=== PATIENT | female | born 1965 | race Caucasian/White ===

== ENCOUNTER → 2016-12-07 | Outpatient (CLI) | payer OTHER ==
--- NOTE | 2016-12-07 11:09 | XR ---
EXAMINATION TYPE: 3 views coned down left thumb. 3 views coned-down right thumb. DATE OF EXAM: 12/07/2016 COMPARISON: Left wrist 09/03/2016 HISTORY: 51-year-old female thumb joint pain FINDINGS: Left: Mild to moderate degenerative change with joint space narrowing and marginal spurring at the first CM C joint. Minimal marginal spurring at the IP joint. No acute fracture or dislocation. Right: Mild degenerative change at the first CMC joint and minimal at the IP joint with some marginal spurri ng. No acute fracture, subluxation, or dislocation. IMPRESSION: Left greater than right osteoarthritic changes at the basal joints of the thumb. No acute osseous abn ormality seen.
== END | disposition home or self-care (01) ==
LOC: RADXRMAIN 10:16
PROVIDERS: ATTEND Family Medicine
DX: M18.0 Bilateral primary osteoarthritis of first carpometacarpal joints (principal)

== ENCOUNTER → 2016-12-20 | Outpatient (CLI) | payer OTHER ==
--- NOTE | 2016-12-20 10:46 | CT ---
EXAMINATION TYPE: CT lumbar spine wo con DATE OF EXAM: 12/20/2016 COMPARISON: CT lumbar spine March 04, 2014 HISTORY: Radiculopathy lumbar region. Numbness in bilateral legs with difficulty ambulating after tri pping injury last week. CT DLP: 2223 mGycm Automated exposure control for dose reduction was used. FINDINGS: There is redemonstration of 5 lumbar type vertebra. There is redemonstration of sclerotic L1 vertebra suspected diffuse hemangioma transformation unchanged in appearance from prior study. Lumbar spine s hows satisfactory alignment without evidence of acute fracture or dislocation. Mild disc space narrow ing L4-L5 and L5-S1 levels is redemonstrated. No large posterior disc herniations are seen on sagitta l images. Minimal anterior spurring upper lumbar spine is redemonstrated. Review of axial images shows T12-L1 and L1-L2 levels to remain within normal limits. Axial images at L2-L3 level redemonstrate mild broad disc bulge without spinal canal stenosis or neur al foraminal narrowing. Axial images at L3-L4 level shows mild broad disc bulge and mild facet degenerative changes bilateral ly. There is mild effacement of anterior thecal sac. Bilateral neural foramina remain patent. No sign ificant change from prior study is seen. Axial images at L4-L5 level show mild to moderate facet degenerative changes bilaterally. There is br oad disc bulge with left foraminal disc protrusion component redemonstrated. There is effacement of t he anterior thecal sac. There is asymmetric moderate left-sided anterior inferior neural foraminal na rrowing redemonstrated. Right-sided neural foramen is patent. Axial images at L5-S1 level redemonstrate mild to moderate facet degenerative changes bilaterally. Sp inal canal is preserved. There is mild bilateral neural foraminal narrowing due to marginal spurring redemonstrated. Cholecystectomy clips are noted. There is mild calcified plaque of aorta extending into branch vessel s. Occasional diverticula in the sigmoid colon are identified. IMPRESSION: MULTILEVEL DEGENERATIVE CHANGES IN THE MID TO LOWER LUMBAR SPINE DETAILED ABOVE MOST PROMINENT AT L4-L5 LEVEL. NO SIGNIFICANT CHANGE FROM PRIOR CT.
== END | disposition home or self-care (01) ==
LOC: RADCTMAIN 08:30
PROVIDERS: ATTEND Family Medicine
DX: M47.27 Other spondylosis with radiculopathy, lumbosacral region (principal)
CPT/HCPCS: 72131

== ENCOUNTER 2017-03-08 12:03 | Day surgery (SDC) | payer OTHER ==
[2017-03-08 12:29] LABS: Glucose,Whole Blood 94 mg/dL (75-99)
[2017-03-08 12:46] VITALS: TEMP 98.2
[2017-03-08] MEDS: LACTATED RINGERS 1,000 ML IV ONE ×2 (12:46→12:47)
[2017-03-08] MEDS ORDERED: LACTATED RINGERS 1,000 ML IV SCH (12:46)
[2017-03-08] MEDS ORDERED: LIDOCAINE 1% 20 ML VIAL (10MG/ML) FOR IV START INTRADERMA ONE (12:47)
[2017-03-08] MEDS ORDERED: PROPOFOL 10 MG/ML 20 ML VIAL IV ONE (13:15)
[2017-03-08 13:51] VITALS: BP 160/83; PULSE 80; RESP 18
--- NOTE | 2017-03-08 13:52 | P.PCN ---
Date of Procedure: 03/08/17 Procedure(s) Performed: Procedure: Esophagogastroduodenoscopy and biopsy. Preoperative diagnosis: Abdominal pain, nausea and vomiting. Postoperative diagnosis: 1. Small sliding hiatal hernia. 2. Mild antral gastritis. 3. Biopsies obtained from the duodenum, antrum and esophagus. Preparation and sedation: Was provided by anesthesia. Procedure: With the patient on her left lateral decubitus position and after informed consent and adequate sedation, I passed the Olympus-GIF 160 video upper endoscope through the cricopharyngeus down the esophagus. GE junction was around 36 cm from the incisors. There was a small sliding hiatal hernia with no esophagitis, strictures or Hernandez's esophagus. The endoscope was then passed into the stomach which was insufflated with air and inspected in detail including the retroflex view in the cardia. There was mottling and erythema in the antrum but no ulcers or erosions. Pyloric channel, duodenal bulb, post bulbar area and descending duodenum appeared within normal limits. I obtained biopsies from the duodenum, antrum and esophagus then the endoscope was withdrawn. The patient tolerated the procedure well. Plan: The patient was reassured. Will await biopsy results. Further plans based on her course and biopsy results.
== END 2017-03-08 14:08 | disposition home or self-care (01) ==
LOC: ORWHC2ENDO 12:03
DX: K29.50 Unspecified chronic gastritis without bleeding (principal); K44.9 Diaphragmatic hernia without obstruction or gangrene; K21.0 Gastro-esophageal reflux disease with esophagitis; I10 Essential (primary) hypertension; E78.5 Hyperlipidemia, unspecified; E07.9 Disorder of thyroid, unspecified; L40.50 Arthropathic psoriasis, unspecified; Z79.899 Other long term (current) drug therapy; Z90.710 Acquired absence of both cervix and uterus; Z88.8 Allergy status to other drugs, medicaments and biological substances
CPT/HCPCS: 43239; 88305; 88342; J2704

== ENCOUNTER 2017-08-22 20:07 | Emergency (ER) | payer OTHER ==
[2017-08-22 20:58] LABS: HCT 38.8 % (34.0-46.0); HGB 13.2 gm/dL (11.4-16.0); MCH 30.3 pg (25.0-35.0); MCV 89.2 fL (80.0-100.0); Mean Platelet Volume 7.3; Platelet Count 215 k/uL (150-450); RBC 4.35 m/uL (3.80-5.40); RDW 12.9 % (11.5-15.5); WBC 4.5 k/uL (3.8-10.6)
[2017-08-22 21:02] LABS: ALT 36 U/L (9-52); AST 28 U/L (14-36); Albumin 3.9 g/dL (3.5-5.0); Alkaline Phosphatase 105 U/L (38-126); Anion Gap 13 mmol/L; Blood Urea Nitrogen 14 mg/dL (7-17); Carbon Dioxide 25 mmol/L (22-30); Chloride 105 mmol/L (98-107); Glucose 93 mg/dL (74-99); Magnesium 1.9 mg/dL (1.6-2.3); Potassium 4.2 mmol/L (3.5-5.1); Sodium 143 mmol/L (137-145); Total Bilirubin 0.2 mg/dL (0.2-1.3); Total Protein 6.6 g/dL (6.3-8.2)
[2017-08-22 21:06] LABS: Creatine Kinase 68 U/L (30-135); INR 0.9 (<1.2); Partial Thromboplastin Time 23.6 sec (22.0-30.0); Prothrombin Time 9.4 sec (9.0-12.0)
[2017-08-22 21:20] LABS: Creatine Kinase MB <0.2 ng/mL (0.0-2.4); Troponin I <0.012 ng/mL (0.000-0.034)
[2017-08-22 21:29] LABS: Band Neutrophils % 1 %; Lymphocytes # (M) 2.07 k/uL (1.0-4.8); Monocytes # (M) 0.54 k/uL (0-1.0); Neutrophils % (M) 41 %; Nucleated Red Blood Cells 0 /100 WBC (0-0); Total Cells Counted 100
[2017-08-22] MEDS ORDERED: ALBUTEROL NEBULIZED 2.5 MG/3 ML INHALATION STA (22:13)
--- NOTE | 2017-08-22 22:13 | ED ---
Chest Pain HPI - General Chief Complaint: Chest Pain Stated Complaint: Chest pain Time Seen by Provider: 08/22/17 21:35 Source: patient Mode of arrival: ambulatory Limitations: no limitations - History of Present Illness Initial Comments: This patient is a 51-year-old woman who presents to be evaluated mainly for left -sided chest pains, but she also has been complaining of chest congestion and a cough. She states that her symptoms started nearly 2 weeks ago with the upper respiratory symptoms which progressed to chest congestion and a cough. She has had some mild shortness of breath intermittently. Patient states that tonight around 7 PM she started experiencing intermittent pains from the left chest radiating towards the substernal area. She describes it as a "zinging" and states that the pain lasts only a second, however she has had it a number of times rapidly and succession. It was not going on when I was doing history and physical exam. She did not have any associated anginal symptoms, no diaphoresis , nausea or vomiting. MD Complaint: chest pain Onset/Timin -: hour(s) Onset: during rest Pain Location: left chest Severity: moderate Quality: other (She first of the pain as a zinging sensation) Consistency: intermittent Improves With: nothing Worsens With: nothing Other Symptoms: cough Treatments Prior to Arrival: none - Related Data Home Medications Medication Instructions Recorded Confirmed Gabapentin [Neurontin] 600 mg PO TID 04/18/14 08/22/17 HYDROcodone/APAP 7.5-325MG [[place] 1 tab PO TID PRN 04/18/14 08/22/17 7.5-325] Metoprolol Tartrate [Metoprolol 50 mg PO BID 04/18/14 08/22/17 Tartrate] Sertraline HCl [Sertraline HCl] 100 mg PO HS 04/18/14 08/22/17 Etanercept [Enbrel] 1 dose INJ MO 03/08/17 08/22/17 Ezetimibe [Zetia] 10 mg PO DAILY 03/08/17 08/22/17 Levothyroxine Sodium [Synthroid] 25 mcg PO DAILY 03/08/17 08/22/17 tiZANidine HCL [Zanaflex] 4 mg PO BID 03/08/17 08/22/17 Cholecalciferol [Vitamin D3] 4,000 unit PO DAILY 08/22/17 08/22/17 Esomeprazole Magnesium [NexIUM] 40 mg PO DAILY 08/22/17 08/22/17 Losartan Potassium 100 mg PO DAILY 08/22/17 08/22/17 Simvastatin 40 mg PO HS 08/22/17 08/22/17 predniSONE 5 mg PO DAILY 08/22/17 08/22/17 sulfaSALAzine [Azulfidine] 1,000 mg PO BID 08/22/17 08/22/17 Previous Rx's Medication Instructions Recorded Albuterol Inhaler [Ventolin Hfa 1 - 2 puff INHALATION Q6HR PRN #1 08/23/17 Inhaler] inhaler Azithromycin [Zithromax Z-pack] 250 mg PO DIRECTED #6 tab 08/23/17 predniSONE 20 mg PO BID #8 tab 08/23/17 Allergies Allergy/AdvReac Type Severity Reaction Status Date / Time lisinopril AdvReac Cough Verified 08/22/17 21:56 Review of Systems ROS Statement: Those systems with pertinent positive or pertinent negative responses have been documented in the HPI. ROS Other: All systems not noted in ROS Statement are negative. Constitutional: Denies: fever, chills Respiratory: Reports: as per HPI, cough, dyspnea, wheezes. Denies: hemoptysis Cardiovascular: Reports: as per HPI, chest pain. Denies: palpitations, edema, syncope Gastrointestinal: Denies: abdominal pain, vomiting, diarrhea Genitourinary: Denies: dysuria, hematuria Musculoskeletal: Denies: back pain Skin: Denies: rash Neurological: Denies: headache, weakness, numbness EKG Findings - EKG Results: EKG: interpreted by ERMD, WNL, sinus rhythm (Rate 71 bpm), normal axis, normal QRS, normal ST/T, no acute changes Past Medical History Past Medical History: Fibromyalgia, GERD/Reflux, Hypertension, Thyroid Disorder Additional Past Medical History / Comment(s): PATENT FORAMEN OVALE, SPINAL STENOSIS, LOW BACK PAIN RADIATES DOWN RODRICK LEGS. psoriatic arthritis History of Any Multi-Drug Resistant Organisms: None Reported Past Surgical History: Appendectomy, Cholecystectomy, Hysterectomy, Orthopedic Surgery, Tonsillectomy, Tubal Ligation Additional Past Surgical History / Comment(s): LEFT HAND , RODRICK SHOULDERS. Past Anesthesia/Blood Transfusion Reactions: Family History of Problems w/ Anesthesia, Postoperative Nausea & Vomiting (PONV) Additional Past Anesthesia/Blood Transfusion Reaction / Comment(s): MOTHER-PONV Past Psychological History: No Psychological Hx Reported Smoking Status: Former smoker Past Alcohol Use History: None Reported Past Drug Use History: None Reported - Past Family History Mother Family Medical History: Cancer Father Family Medical History: Deep Vein Thrombosis (DVT) General Exam Limitations: no limitations General appearance: alert, in no apparent distress, obese Head exam: Present: atraumatic, normocephalic Eye exam: Present: normal appearance. Absent: scleral icterus, conjunctival injection Respiratory exam: Present: normal lung sounds bilaterally, wheezes. Absent: respiratory distress, rales, rhonchi, stridor, chest wall tenderness, accessory muscle use, decreased breath sounds, prolonged expiratory Cardiovascular Exam: Present: regular rate, normal rhythm, systolic murmur. Absent: diastolic murmur, rubs, gallop GI/Abdominal exam: Present: soft. Absent: distended, tenderness, guarding, rebound, mass Extremities exam: Present: normal inspection, normal capillary refill. Absent: pedal edema, calf tenderness Back exam: Absent: CVA tenderness (R), CVA tenderness (L) Skin exam: Present: warm, dry, intact, normal color. Absent: rash Course Vital Signs 08/22/17 08/22/17 08/22/17 20:15 22:24 22:31 Temperature 97.0 F L 97.7 F Pulse Rate 85 74 69 Respiratory 18 18 16 Rate Blood Pressure 148/86 156/83 O2 Sat by Pulse 100 96 Oximetry 08/22/17 22:40 Temperature Pulse Rate 70 Respiratory 16 Rate Blood Pressure O2 Sat by Pulse Oximetry Disposition Clinical Impression: Chest pain, Bronchitis Disposition: HOME SELF-CARE Condition: Good Instructions: Chest Pain (ED), Acute Bronchitis (ED) Prescriptions: Albuterol Inhaler [Ventolin Hfa Inhaler] 1 - 2 puff INHALATION Q6HR PRN #1 inhaler PRN Reason: Wheezing Azithromycin [Zithromax Z-pack] 250 mg PO DIRECTED #6 tab predniSONE 20 mg PO BID #8 tab Referrals: Siddhartha Eli DO [Primary Care Provider] - 1-2 days
--- NOTE | 2017-08-22 22:19 | XR ---
EXAMINATION TYPE: XR chest 2V DATE OF EXAM: 08/22/2017 COMPARISON: NONE HISTORY: Cough and chest pain TECHNIQUE: Frontal and lateral views of the chest are obtained. FINDINGS: Heart and mediastinum are normal. Lungs are clear. Diaphragm is normal. Bony thorax is int act. Pulmonary vascularity is normal. IMPRESSION: Normal chest
[2017-08-22 22:34] VITALS: RESP 16
[2017-08-23 00:33] VITALS: BP 160/85; PULSE 82; TEMP 99.3
== END 2017-08-23 00:33 | disposition home or self-care (01) ==
LOC: EC 20:07
DX: J40 Bronchitis, not specified as acute or chronic (principal); K21.9 Gastro-esophageal reflux disease without esophagitis; I10 Essential (primary) hypertension; E07.9 Disorder of thyroid, unspecified; L40.50 Arthropathic psoriasis, unspecified; Z87.891 Personal history of nicotine dependence; Z79.52 Long term (current) use of systemic steroids; Z79.899 Other long term (current) drug therapy; Z88.8 Allergy status to other drugs, medicaments and biological substances
CPT/HCPCS: 36415; 71046; 80053; 82550; 82553; 83735; 84484; 85025; 85610; 85730; 93005; 94640; 99285

== ENCOUNTER 2020-03-03 10:24 | Day surgery (SDC) | payer MEDICARE, OTHER ==
[2020-02-28 14:27] VITALS: BMI 41.6
[~2020-03-03 10:24] MED LIST: DEXAMETHASONE SOD PHOSPHATE 10 MG/ML 1 ML VIAL IV ONE; HYDROmorphone 0.5 MG/0.5 ML SYRINGE IVP PRN; LACTATED RINGERS 1,000 ML IV SCH; LIDOCAINE 1% (10MG/ML) FOR IV START INTRADERMA PRN; MIDAZOLAM 2 MG/2 ML VIAL IV PRN; ONDANSETRON 4 MG/2 ML VIAL IVP ONE
[2020-03-03 10:43] VITALS: RESP 16; TEMP 97
[2020-03-03] MEDS ORDERED: MIDAZOLAM 2 MG/2 ML VIAL IVP ONE (11:10)
[2020-03-03] MEDS ORDERED: fentaNYL (PF) 50 MCG/ML 2 ML AMP IVP ONE (11:11)
--- NOTE | 2020-03-03 11:23 | P.ANPRN ---
Procedure Note - Anesthesia - Nerve Block Performed Right Supraclavicular Single Time Out Performed: Yes Date of Procedure: 03/03/20 Procedure Start Time: 11:08 Procedure Stop Time: 11:16 Location of Patient: PreOp Indication: Requested by Surgeon Specifically requested for management of pain by DrKhadra: Pedro Mena Sedation Type: Sedate with meaningful contact maintained Preparation: Sterile Prep Position: Supine Needle Types: Pajunk Needle Gauge: 21 Ultrasound used to visualize needle placement: Yes Ultrasound used to observe medication spread: Yes Injectate: 0.5% Ropivacaine (see comment for volume) (30 ml +dexamethason 4 mg) Blood Aspirated: No Pain Paresthesia on Injection Noted: No Resistance on Injection: Normal Image Stored and Saved: Yes Events: Uneventful and Well Tolerated
[2020-03-03] MEDS ORDERED: MIDAZOLAM 2 MG/2 ML VIAL ONE (12:07)
[2020-03-03] MEDS ORDERED: fentaNYL (PF) 50 MCG/ML 2 ML AMP ONE (12:07)
[2020-03-03] MEDS ORDERED: LIDOCAINE 1% INJ 10MG/ML (20 ML MDV) ONE (12:07)
[2020-03-03] MEDS ORDERED: ceFAZolin 1,000 MG in SODIUM CHLORIDE 0.9% 1,000 ML IRRIGATION ONE (12:17)
[2020-03-03 13:22] VITALS: BP 148/93; PULSE 63
--- NOTE | 2020-03-04 02:00 | OP ---
OPERATIVE REPORT DATE OF SURGERY: 03/03/2020 PREOPERATIVE DIAGNOSES: 1. Basal joint arthritis, right thumb. 2. Right carpal tunnel syndrome. 3. Right cubital tunnel syndrome. POSTOPERATIVE DIAGNOSES: 1. Basal joint arthritis, right thumb. 2. Right carpal tunnel syndrome. 3. Right cubital tunnel syndrome. PROCEDURES: 1. Excision of trapezium with tendon arthroplasty. 2. Ligament reconstruction tendon interposition arthroplasty using flexor carpi radialis. 3. Carpal tunnel release, right wrist. 4. Cubital tunnel release, right elbow. 1st Oncology Nurse: Amy Le NP DESCRIPTION OF PROCEDURE: The patient was taken to the operative suite after an axillary block was performed by the department of anesthesia in the holding area with good results. The involved arm was prepped and draped in the usual manner, elevated, exsanguinated and blood pressure tourniquet inflated to 250 mm of mercury. A volar incision was made over the palm of the hand using a Jackson approach. The dissection was taken through the subcutaneous tissue bluntly to identify and to preserve sensory branches. The flexor carpi radialis tendon was initially identified and kept in view throughout the remainder of the procedure. The thenar muscles were then gently dissected off of the volar capsule and reflected ulnarly and distally. Longitudinal arthrotomy was then made into the trapezial metacarpal and scaphotrapezial joints. The trapezium was dissected sharply with a little traction on the thumb and care again, given to monitoring the position of the flexor carpi radialis. The trapezium was osteotomized and removed in piecemeal fashion using rongeur. Again, the flexor carpi radialis tendon was kept intact so as not to be harmed during this portion of the procedure. A drill hole was then made into the base of the first metacarpal, beginning with an awl and enlarged using drill bits and a large curette. A similar hole was drilled on the dorsal aspect of the base of the first metacarpal perpendicular to the plane of the nail bed. Attention was then turned to harvesting the flexor carpi radialis. Approximately 8 to 10 cm proximal to the wrist, small transverse incision was made and blunt dissection was taken through the subcutaneous tissue. The flexor carpi radialis tendon was identified and released to this level. It was retracted into the wrist wound with a gentle tug. A suspension sling arthroplasty was then performed along with ligament reconstruction of the deep volar ligament using the flexor carpi radialis tendon. The edge of the tendon was secured with suture. The suture was then passed into the base of the first metacarpal and brought out through the dorsal drill hole and brought back down upon itself and abductor pollicis longus tendons. It was secured in place with 3-0 PDS suture. It was then brought back around itself, back through the abductor pollicis longus tendons, and back down upon itself again and further secured with 3-0 PDS suture. Again, in this manner reconstruction of the deep volar ligament was accomplished as well as a suspension sling arthroplasty and natural tendon spacer for the joint. Next, a longitudinal incision was made along the ring finger ray distal to the wrist crease. Dissection was taken through the skin and subcutaneous tissue, initially sharp through the skin and then blunt through the subcutaneous tissue to ensure protection of any potential terminal transverse branches of the palmar cutaneous nerve. The palmar fascia was then incised under direct vision longitudinally exposing the transverse carpal ligament. The transverse carpal ligament also was incised under direct visualization. The median nerve was then reflected free of tenosynovium to ensure no adhesions. At this point, a slight hour glass constriction was noted of the median nerve beneath the transverse carpal ligament. Both wounds were again irrigated and were closed with running and interrupted 5- 0 nylon suture. A longitudinal incision was made, somewhat posteriorly near the olecranon. Dissection was then taken through the skin and subcutaneous tissue with blunt dissection then performed to protect any posterior ranches of the medial antebrachial cutaneous nerve of the arm. The ulnar nerve was then visualized in the retrocondylar groove and was traced in both the proximal distal direction. Care was taken to ensure all potential site of nerve entrapment were decompressed including the arcade of [place], the medial intermuscular septums, the retrocondylar groove, decubital tunnel and the flexor aponeurosis distally. Care was taken to avoid dissecting the ulnar nerve from it?s vascular supply. At the completion of the procedure, the elbow was placed in flexion and there is no signs of subluxation. The wound was then irrigated and the skin was closed with running 5-0 nylon suture. Marcaine was injected for long acting anesthetic. A soft bulky dressing was then applied including the volar plaster splint, immobilizing the wrist in neutral position and a thumb spica splint to the IP joint, immobilizing the thumb. The patient was then taken to the recovery room in satisfactory condition. ARIES / GLYNN: [id number] / EMELI
== END 2020-03-03 14:05 | disposition home or self-care (01) ==
LOC: OR 10:24
PROVIDERS: ATTEND Orthopaedic Surgery Hand Surgery
DX: M19.041 Primary osteoarthritis, right hand (principal); M19.031 Primary osteoarthritis, right wrist; G56.01 Carpal tunnel syndrome, right upper limb; G56.21 Lesion of ulnar nerve, right upper limb; M65.841 Other synovitis and tenosynovitis, right hand; M19.032 Primary osteoarthritis, left wrist; I11.9 Hypertensive heart disease without heart failure; M10.9 Gout, unspecified; E07.9 Disorder of thyroid, unspecified; K21.9 Gastro-esophageal reflux disease without esophagitis; E66.9 Obesity, unspecified; E78.5 Hyperlipidemia, unspecified; M79.7 Fibromyalgia; L40.50 Arthropathic psoriasis, unspecified; Z88.8 Allergy status to other drugs, medicaments and biological substances; Z90.710 Acquired absence of both cervix and uterus; Z90.49 Acquired absence of other specified parts of digestive tract; Z98.890 Other specified postprocedural states; Z87.891 Personal history of nicotine dependence; Z79.899 Other long term (current) drug therapy; Z82.49 Family history of ischemic heart disease and other diseases of the circulatory system; Z83.3 Family history of diabetes mellitus
CPT/HCPCS: 25447; 64718; 64721; 99285; 36415; 93005; 64415; 76942; 85379; 80053; 83605; 84484; 85025; 85610; 85730; 71046; 71275; J2250; J1100; J0690 ×2; J2405; J2001; J3010; Q9967; 64999

== ENCOUNTER 2020-03-03 17:55 | Emergency (ER) | payer MEDICARE, OTHER ==
--- NOTE | 2020-03-03 18:50 | XR ---
EXAMINATION TYPE: XR chest 2V DATE OF EXAM: 03/03/2020 COMPARISON: Prior chest x-ray 08/22/2017 HISTORY: Shortness of breath TECHNIQUE: Frontal and lateral views of the chest are obtained on 3 images. FINDINGS: There is artifact over portions of the exam. There is no focal air space opacity, pleural e ffusion, or pneumothorax seen. The cardiac silhouette size is within normal limits. Right hemidiaph ragm is elevated. There are overlying cardiac leads. Patient is rotated. Patchy basilar density is no adri. The osseous structures are intact. IMPRESSION: Expiratory rotated exam, probable subsegmental basilar atelectatic changes. Elevation of the right hemidiaphragm. Follow-up as indicated.
--- NOTE | 2020-03-03 19:57 | ED ---
SOB HPI - General Chief Complaint: Shortness of Breath Stated Complaint: Surgery today SOB Time Seen by Provider: 03/03/20 17:55 Source: patient Limitations: no limitations - History of Present Illness Initial Comments: 84-year-old female presents emergency room with reported shortness of breath that started today after surgery. She had a supraclavicular nerve block done for right carpal tunnel and right cubital tunnel release. States that she was released from surgery and felt okay. While began having right-sided chest pain and shortness of breath. No history of DVT or PE. Reports to a large family history of blood clotting issues. Denies pleuritic chest pain. No history of underlying lung issues. No cough or hemoptysis. No fevers or chills. No associated nausea or vomiting. No other alleviating, precipitating or modifying factors - Related Data Home Medications Medication Instructions Recorded Confirmed HYDROcodone/APAP 7.5-325MG [[place] 1 tab PO TID PRN 04/18/14 02/28/20 7.5-325] Metoprolol Tartrate 100 mg PO QAM 04/18/14 02/28/20 Sertraline HCl 100 mg PO HS 04/18/14 02/28/20 Ezetimibe [Zetia] 10 mg PO HS 03/08/17 02/28/20 Levothyroxine Sodium [Synthroid] 25 mcg PO DAILY 03/08/17 02/28/20 tiZANidine HCL [Zanaflex] 4 mg PO HS 03/08/17 02/28/20 Cholecalciferol [Vitamin D3] 4,000 unit PO DAILY 08/22/17 02/28/20 Esomeprazole Magnesium [NexIUM] 40 mg PO DAILY 08/22/17 02/28/20 Losartan Potassium 100 mg PO DAILY 08/22/17 02/28/20 Simvastatin 40 mg PO HS 08/22/17 02/28/20 sulfaSALAzine [Azulfidine] 1,000 mg PO BID 08/22/17 02/28/20 Adalimumab [Humira Crohn's] 40 mg SQ LUQUE 02/28/20 02/28/20 Alendronate Sodium [Fosamax] 70 mg PO TU 02/28/20 02/28/20 Cannabidiol (Cbd) [Epidiolex] 0 mg PO DIRECTED PRN 02/28/20 02/28/20 Fexofenadine HCl [Maria Eugenia Allergy] 180 mg PO DAILY 02/28/20 02/28/20 Gabapentin 800 mg PO TID 02/28/20 02/28/20 Metoprolol Tartrate [Lopressor] 50 mg PO HS 02/28/20 02/28/20 Previous Rx's Medication Instructions Recorded Albuterol Inhaler (Mhu) [Ventolin 1 - 2 puff INHALATION Q6HR PRN #1 08/23/17 Hfa Inhaler (Mhu)] inhaler HYDROcodone/APAP 10-325MG [[place] 1 tab PO Q6HR PRN #10 tab 03/03/20 10-325] Allergies Allergy/AdvReac Type Severity Reaction Status Date / Time lisinopril AdvReac Cough Verified 03/03/20 10:44 Review of Systems ROS Statement: Those systems with pertinent positive or pertinent negative responses have been documented in the HPI. ROS Other: All systems not noted in ROS Statement are negative. Past Medical History Past Medical History: Fibromyalgia, GERD/Reflux, Hyperlipidemia, Hypertension, Osteoarthritis (OA), Thyroid Disorder Additional Past Medical History / Comment(s): SPINAL STENOSIS, LOW BACK PAIN RADIATES DOWN RODRICK LEGS. psoriatic arthritis, palpitations, hiatal hernia, gout, osteopenia, dry skin on elbow, paget's disease History of Any Multi-Drug Resistant Organisms: None Reported Past Surgical History: Appendectomy, Breast Surgery, Cholecystectomy, H ysterectomy, Joint Replacement, Orthopedic Surgery, Tonsillectomy, Tubal Ligation Additional Past Surgical History / Comment(s): LEFT HAND: carpal tunnel, left elbow torn nerve repair, joint replacement left thumb. RODRICK SHOULDER arthroscopy. surgery for fx left hand, left foot spurs removed, left breast biopsy Past Anesthesia/Blood Transfusion Reactions: Family History of Problems w/ Anesthesia, Postoperative Nausea & Vomiting (PONV) Additional Past Anesthesia/Blood Transfusion Reaction / Comment(s): MOTHER-PONV Past Psychological History: No Psychological Hx Reported Smoking Status: Former smoker Past Alcohol Use History: None Reported Past Drug Use History: None Reported - Past Family History Mother Family Medical History: Cancer Father Family Medical History: CVA/TIA, Deep Vein Thrombosis (DVT) General Exam Limitations: no limitations General appearance: alert, in no apparent distress Head exam: Present: atraumatic, normocephalic, normal inspection Eye exam: Present: normal appearance, PERRL, EOMI. Absent: scleral icterus, conjunctival injection, periorbital swelling ENT exam: Present: normal exam, mucous membranes moist Neck exam: Present: normal inspection. Absent: tenderness, meningismus, lymphadenopathy Respiratory exam: Present: normal lung sounds bilaterally. Absent: respiratory distress, wheezes, rales, rhonchi, stridor Cardiovascular Exam: Present: regular rate, normal rhythm, normal heart sounds. Absent: systolic murmur, diastolic murmur, rubs, gallop, clicks GI/Abdominal exam: Present: soft, normal bowel sounds. Absent: distended, tenderness, guarding, rebound, rigid Extremities exam: Present: normal inspection, full ROM, normal capillary refill. Absent: tenderness, pedal edema, joint swelling, calf tenderness Back exam: Present: normal inspection Neurological exam: Present: alert, oriented X3, CN II-XII intact Psychiatric exam: Present: normal affect, normal mood Skin exam: Present: warm, dry, intact, normal color. Absent: rash Course Vital Signs 03/03/20 03/03/20 03/03/20 17:57 18:24 21:49 Temperature 97.6 F 98.3 F Pulse Rate 89 78 Respiratory 22 19 17 Rate Blood Pressure 149/77 147/82 O2 Sat by Pulse 97 97 Oximetry Medical Decision Making - Medical Decision Making Upon arrival the patient is placed into room 9. A thorough history and physical exam is performed. Patient does have bilateral breath sounds. She is sent over for an x-ray which demonstrates subsegmental basilar atelectatic changes. Elevation of the right hemidiaphragm. This is compared to previous. Laboratory studies were conducted. D-dimer elevated at 0.8. Lactic acid 2.1. Troponin negative. Because the patient's heart family history of blood clotting disorder did perform a CT the patient's chest which demonstrates no evidence of pulmonary embolism. I discussed results with the patient. I did recommend hospitalization for observation over the patient refused. Patient's vitals are within normal limits throughout her stay in the emergency room. At this time the patient will be discharged home. She needs to follow up with her primary care doctor within 2-4 days. He recommended a repeat chest x-ray at that time. Return to the emergency room for any worsening symptoms per patient was in agr eement with the plan and discharged home in stable condition - Lab Data Result diagrams: 03/03/20 19:08 03/03/20 19:08 Lab Results 03/03/20 03/03/20 03/03/20 Range/Units 18:45 19:08 19:08 WBC 8.4 (3.8-10.6) k/uL RBC 4.11 (3.80-5.40) m/uL Hgb 12.6 (11.4-16.0) gm/dL Hct 39.1 (34.0-46.0) % MCV 95.2 (80.0-100.0) fL MCH 30.7 (25.0-35.0) pg MCHC 32.2 (31.0-37.0) g/dL RDW 13.4 (11.5-15.5) % Plt Count 228 (150-450) k/uL Neutrophils % 84 % Lymphocytes % 12 % Monocytes % 3 % Eosinophils % 1 % Basophils % 0 % Neutrophils # 7.0 (1.3-7.7) k/uL Lymphocytes # 1.0 (1.0-4.8) k/uL Monocytes # 0.2 (0-1.0) k/uL Eosinophils # 0.1 (0-0.7) k/uL Basophils # 0.0 (0-0.2) k/uL PT 9.4 (9.0-12.0) sec INR 0.9 (<1.2) APTT 23.8 (22.0-30.0) sec D-Dimer 0.80 H (<0.60) mg/L FEU Sodium (137-145) mmol/L Potassium (3.5-5.1) mmol/L Chloride (98-107) mmol/L Carbon Dioxide (22-30) mmol/L Anion Gap mmol/L BUN (7-17) mg/dL Creatinine (0.52-1.04) mg/dL Est GFR (CKD-EPI)AfAm (>60 ml/min/1.73 sqM) Est GFR (CKD-EPI)NonAf (>60 ml/min/1.73 sqM) Glucose (74-99) mg/dL Plasma Lactic Acid Ramesh (0.7-2.0) mmol/L Calcium (8.4-10.2) mg/dL Total Bilirubin (0.2-1.3) mg/dL AST (14-36) U/L ALT (4-34) U/L Alkaline Phosphatase (38-126) U/L Troponin I <0.012 (0.000-0.034) ng/mL Total Protein (6.3-8.2) g/dL Albumin (3.5-5.0) g/dL 03/03/20 03/03/20 Range/Units 19:08 19:08 WBC (3.8-10.6) k/uL RBC (3.80-5.40) m/uL Hgb (11.4-16.0) gm/dL Hct (34.0-46.0) % MCV (80.0-100.0) fL MCH (25.0-35.0) pg MCHC (31.0-37.0) g/dL RDW (11.5-15.5) % Plt Count (150-450) k/uL Neutrophils % % Lymphocytes % % Monocytes % % Eosinophils % % Basophils % % Neutrophils # (1.3-7.7) k/uL Lymphocytes # (1.0-4.8) k/uL Monocytes # (0-1.0) k/uL Eosinophils # (0-0.7) k/uL Basophils # (0-0.2) k/uL PT (9.0-12.0) sec INR (<1.2) APTT (22.0-30.0) sec D-Dimer (<0.60) mg/L FEU Sodium 137 (137-145) mmol/L Potassium 4.6 (3.5-5.1) mmol/L Chloride 105 (98-107) mmol/L Carbon Dioxide 25 (22-30) mmol/L Anion Gap 7 mmol/L BUN 18 H (7-17) mg/dL Creatinine 0.55 (0.52-1.04) mg/dL Est GFR (CKD-EPI)AfAm >90 (>60 ml/min/1.73 sqM) Est GFR (CKD-EPI)NonAf >90 (>60 ml/min/1.73 sqM) Glucose 127 H (74-99) mg/dL Plasma Lactic Acid Ramesh 2.1 H* (0.7-2.0) mmol/L Calcium 9.5 (8.4-10.2) mg/dL Total Bilirubin 0.3 (0.2-1.3) mg/dL AST 23 (14-36) U/L ALT 16 (4-34) U/L Alkaline Phosphatase 121 (38-126) U/L Troponin I (0.000-0.034) ng/mL Total Protein 7.1 (6.3-8.2) g/dL Albumin 4.1 (3.5-5.0) g/dL - EKG Data EKG Comments: EKG demonstrates a normal sinus rhythm with a ventricular rate of 81. LA interval 154. QRS 92. QTC of 429. No acute ST segment depressions concerning for ischemic changes Disposition Clinical Impression: Shortness of breath, Peripheral nerve and plexus-blocking anaesthetic causing adverse effect in therapeutic use, Paralyzed hemidiaphragm Disposition: HOME SELF-CARE Condition: Stable Instructions (If sedation given, give patient instructions): Shortness of Breath (ED) Additional Instructions: Please follow with your primary care doctor. I do recommend a repeat x-ray in 1 week. Return to the emergency room for any new or worsening symptoms Is patient prescribed a controlled substance at d/c from ED?: No Referrals: Siddhartha Eli DO [Primary Care Provider] - 1-2 days Time of Disposition: 21:27
[2020-03-03 20:00] LABS: Basophils % (A) 0 %; Eosinophils # (A) 0.1 k/uL (0-0.7); Eosinophils % (A) 1 %; HCT 39.1 % (34.0-46.0); HGB 12.6 gm/dL (11.4-16.0); Lymphocytes % (A) 12 %; MCH 30.7 pg (25.0-35.0); MCHC 32.2 g/dL (31.0-37.0); MCV 95.2 fL (80.0-100.0); Mean Platelet Volume 7.5; Monocytes # (A) 0.2 k/uL (0-1.0); Monocytes % (A) 3 %; Neutrophils % (A) 84 %; Platelet Count 228 k/uL (150-450); RBC 4.11 m/uL (3.80-5.40); RDW 13.4 % (11.5-15.5); WBC 8.4 k/uL (3.8-10.6)
[2020-03-03 20:09] LABS: ALT 16 U/L (4-34); AST 23 U/L (14-36); African American GFR (CKD) >90 (>60 ml/min/1.73 sqM); Albumin 4.1 g/dL (3.5-5.0); Alkaline Phosphatase 121 U/L (38-126); Anion Gap 7 mmol/L; Blood Urea Nitrogen 18 mg/dL (7-17); Calcium 9.5 mg/dL (8.4-10.2); Carbon Dioxide 25 mmol/L (22-30); Chloride 105 mmol/L (98-107); Glucose 127 mg/dL (74-99); Non-African American GFR(CKD) >90 (>60 ml/min/1.73 sqM); Potassium 4.6 mmol/L (3.5-5.1); Sodium 137 mmol/L (137-145); Total Bilirubin 0.3 mg/dL (0.2-1.3); Total Protein 7.1 g/dL (6.3-8.2)
[2020-03-03 20:12] LABS: INR 0.9 (<1.2); Partial Thromboplastin Time 23.8 sec (22.0-30.0); Prothrombin Time 9.4 sec (9.0-12.0)
[2020-03-03 20:14] LABS: D-Dimer 0.8 mg/L FEU (<0.60)
--- NOTE | 2020-03-03 21:11 | CT ---
EXAMINATION TYPE: CT chest angio for PE DATE OF EXAM: 03/03/2020 COMPARISON: HISTORY: post-op SOB CT DLP: 920 mGycm Automated exposure control for dose reduction was used. CONTRAST: CT Chest for pulmonary embolism performed with with IV Contrast, patient injected with 94cc mL of Iso jez 370. Three-dimensional reconstructions on an alternate workstation. FINDINGS: LUNGS: The lungs are grossly clear, there is no concerning parenchymal mass or nodule identified. Par enchymal bands may represent scarring or atelectasis. Calcified granuloma present in the right lower lobe. There is no pleural effusion or pneumothorax seen. The tracheobronchial tree is patent. MEDIASTINUM: There is satisfactory enhancement of the pulmonary artery and its branches, there is no CT evidence for pulmonary embolism. Some calcified mediastinal nodes are present There are no greate r than 1 cm hilar or mediastinal lymph nodes. No pericardial effusion is seen. AORTA: No additional significant abnormality is seen. OTHER: No liver shows low attenuation likely due to hepatic steatosis. The liver is likely enlarged. IMPRESSION: No evident pulmonary embolism. Additional findings above.
[2020-03-03 21:49] VITALS: BP 147/82; PULSE 78; RESP 17; TEMP 98.3
== END 2020-03-03 21:49 | disposition home or self-care (01) ==
LOC: EC 17:55
DX: R06.02 Shortness of breath (principal); T41.3X5A Adverse effect of local anesthetics, initial encounter; J98.6 Disorders of diaphragm; R79.89 Other specified abnormal findings of blood chemistry; I10 Essential (primary) hypertension; K21.9 Gastro-esophageal reflux disease without esophagitis; E78.5 Hyperlipidemia, unspecified; L40.50 Arthropathic psoriasis, unspecified; M79.7 Fibromyalgia; E07.9 Disorder of thyroid, unspecified; M54.5 Low back pain; Z79.899 Other long term (current) drug therapy; Z79.890 Hormone replacement therapy; Z79.83 Long term (current) use of bisphosphonates; Z88.8 Allergy status to other drugs, medicaments and biological substances; Z87.891 Personal history of nicotine dependence; Z96.692 Finger-joint replacement of left hand
CPT/HCPCS: 36415; 93005; 85379; 80053; 83605; 84484; 85025; 85610; 85730; 71046; 71275; 99285; Q9967

== ENCOUNTER 2020-04-28 10:03 | Emergency (ER) | payer MEDICARE, OTHER ==
[2020-04-28 10:09] VITALS: BP 149/103; PULSE 76; RESP 18; TEMP 97.8
[2020-04-28] MEDS ORDERED: HYDROmorphone 1 MG/ML 1 ML SYRINGE IM STA (10:24)
--- NOTE | 2020-04-28 10:33 | ED ---
Fall HPI - General Chief Complaint: Fall Stated Complaint: fall/ankle injury Time Seen by Provider: 04/28/20 10:09 Source: patient, RN notes reviewed Mode of arrival: wheelchair Limitations: no limitations - History of Present Illness Initial Comments: 54-year-old female presents emergency Department with chief complaint of slip and fall. Patient states she slipped on some ice which her foot caught underneath of her. Patient states she has lateral left ankle pain. Patient had no prior fractures. Denies any paresthesias no pain proximal or distal to left ankle no head injury no loss conscious. - Related Data Home Medications Medication Instructions Recorded Confirmed HYDROcodone/APAP 7.5-325MG [[place] 1 tab PO TID PRN 04/18/14 02/28/20 7.5-325] Metoprolol Tartrate 100 mg PO QAM 04/18/14 02/28/20 Sertraline HCl 100 mg PO HS 04/18/14 02/28/20 Ezetimibe [Zetia] 10 mg PO HS 03/08/17 02/28/20 Levothyroxine Sodium [Synthroid] 25 mcg PO DAILY 03/08/17 02/28/20 tiZANidine HCL [Zanaflex] 4 mg PO HS 03/08/17 02/28/20 Cholecalciferol [Vitamin D3] 4,000 unit PO DAILY 08/22/17 02/28/20 Esomeprazole Magnesium [NexIUM] 40 mg PO DAILY 08/22/17 02/28/20 Losartan Potassium 100 mg PO DAILY 08/22/17 02/28/20 Simvastatin 40 mg PO HS 08/22/17 02/28/20 sulfaSALAzine [Azulfidine] 1,000 mg PO BID 08/22/17 02/28/20 Adalimumab [Humira Crohn's] 40 mg SQ LUQUE 02/28/20 02/28/20 Alendronate Sodium [Fosamax] 70 mg PO TU 02/28/20 02/28/20 Cannabidiol (Cbd) [Epidiolex] 0 mg PO DIRECTED PRN 02/28/20 02/28/20 Fexofenadine HCl [Maria Eugenia Allergy] 180 mg PO DAILY 02/28/20 02/28/20 Gabapentin 800 mg PO TID 02/28/20 02/28/20 Metoprolol Tartrate [Lopressor] 50 mg PO HS 02/28/20 02/28/20 Previous Rx's Medication Instructions Recorded Albuterol Inhaler (Mhu) [Ventolin 1 - 2 puff INHALATION Q6HR PRN #1 08/23/17 Hfa Inhaler (Mhu)] inhaler HYDROcodone/APAP 10-325MG [[place] 1 tab PO Q6HR PRN #10 tab 03/03/20 10-325] Ibuprofen [Motrin] 600 mg PO Q8HR PRN #20 tab 04/28/20 Allergies Allergy/AdvReac Type Severity Reaction Status Date / Time lisinopril AdvReac Cough Verified 04/28/20 10:09 Review of Systems ROS Statement: Those systems with pertinent positive or pertinent negative responses have been documented in the HPI. ROS Other: All systems not noted in ROS Statement are negative. Past Medical History Past Medical History: Fibromyalgia, GERD/Reflux, Hyperlipidemia, Hypertension, Osteoarthritis (OA), Thyroid Disorder Additional Past Medical History / Comment(s): SPINAL STENOSIS, LOW BACK PAIN RADIATES DOWN RODRICK LEGS. psoriatic arthritis, palpitations, hiatal hernia, gout, osteopenia, dry skin on elbow, paget's disease History of Any Multi-Drug Resistant Organisms: None Reported Past Surgical History: Appendectomy, Breast Surgery, Cholecystectomy, Hysterectomy, Joint Replacement, Orthopedic Surgery, Tonsillectomy, Tubal Ligation Additional Past Surgical History / Comment(s): LEFT HAND: carpal tunnel, left elbow torn nerve repair, joint replacement left thumb. RODRICK SHOULDER arthroscopy. surgery for fx left hand, left foot spurs removed, left breast biopsy. Right hand surgey Past Anesthesia/Blood Transfusion Reactions: Family History of Problems w/ Anesthesia, Postoperative Nausea & Vomiting (PONV) Additional Past Anesthesia/Blood Transfusion Reaction / Comment(s): MOTHER-PONV Past Psychological History: No Psychological Hx Reported Smoking Status: Former smoker Past Alcohol Use History: None Reported Past Drug Use History: None Reported - Past Family History Mother Family Medical History: Cancer Father Family Medical History: CVA/TIA, Deep Vein Thrombosis (DVT) General Exam Limitations: no limitations General appearance: alert, in no apparent distress Head exam: Present: atraumatic, normocephalic, normal inspection Eye exam: Present: normal appearance, PERRL, EOMI. Absent: scleral icterus, conjunctival injection, periorbital swelling Respiratory exam: Present: normal lung sounds bilaterally. Absent: respiratory distress, wheezes, rales, rhonchi, stridor Cardiovascular Exam: Present: regular rate, normal rhythm, normal heart sounds. Absent: systolic murmur, diastolic murmur, rubs, gallop, clicks Extremities exam: Present: other (Left ankle lateral malleoli region there is moderate swelling, tenderness of palpation, neurovascular intact no foot tenderness, no proximal tib-fib tenderness) Neurological exam: Present: alert, oriented X3 Skin exam: Present: warm, dry, intact, normal color. Absent: rash Course Vital Signs 04/28/20 10:06 Temperature 97.8 F Pulse Rate 76 Respiratory 18 Rate Blood Pressure 149/103 O2 Sat by Pulse 98 Oximetry Procedures - Orthopedic Splinting/Casting Injury #1 Side: left Lower Extremity Injury Location: short leg, ankle Lower Extremity Immobilizer: posterior splint, synthetic pre-padded splint Other Orthopedic Equipment: crutches Medical Decision Making - Medical Decision Making X-ray shows distal fibular avulsion fracture and talus avulsion fracture. Patient was splinted and will follow-up with her orthopedic surgeon. Disposition Clinical Impression: Fall, Fracture of distal end of left fibula, Avulsion fracture of left talus Disposition: HOME SELF-CARE Condition: Stable Instructions (If sedation given, give patient instructions): Ankle Fracture (ED) Additional Instructions: Please return to the Emergency Department if symptoms worsen or any other concerns. Prescriptions: Ibuprofen [Motrin] 600 mg PO Q8HR PRN #20 tab PRN Reason: Pain Is patient prescribed a controlled substance at d/c from ED?: No Referrals: Siddhartha Eli DO [Primary Care Provider] - 1-2 days Jasvir Mena DO [Doctor of Osteopathic Medicine] - 1-2 days Time of Disposition: 11:11
--- NOTE | 2020-04-28 10:52 | XR ---
EXAMINATION TYPE: XR ankle complete LT DATE OF EXAM: 04/28/2020 COMPARISON: None HISTORY: Fall, pain TECHNIQUE: Three-view left ankle FINDINGS: Soft tissue swelling is over the lateral malleolus in the anterior ankle. Over the distal talus there is a linear ossification which may be an avulsion. Clinical correlation w ith location of the patient's pain is recommended. There is a tiny calcification medial to the lateral malleolus could be a tiny avulsion from the fibul a. This is best visualized in the frontal projection. IMPRESSION: 1. Avulsion from the distal anterior superior talus on the lateral projection. 2. Possible fibular avulsion from the medial inferior fibula. 3. Soft tissue swelling over the lateral malleolus and anterior ankle.
[2020-04-28] MEDS ORDERED: ACET/COD 300 MG/30 MG STARTER PACK 6 TAB BTL PO STA (11:11)
== END 2020-04-28 11:21 | disposition home or self-care (01) ==
LOC: EC 10:03
DX: S82.832A Other fracture of upper and lower end of left fibula, initial encounter for closed fracture (principal); S92.152A Displaced avulsion fracture (chip fracture) of left talus, initial encounter for closed fracture; K21.9 Gastro-esophageal reflux disease without esophagitis; E78.5 Hyperlipidemia, unspecified; I10 Essential (primary) hypertension; M19.90 Unspecified osteoarthritis, unspecified site; M79.7 Fibromyalgia; E07.9 Disorder of thyroid, unspecified; M10.9 Gout, unspecified; L40.50 Arthropathic psoriasis, unspecified; Z79.890 Hormone replacement therapy; Z79.899 Other long term (current) drug therapy; Z88.8 Allergy status to other drugs, medicaments and biological substances; Z87.891 Personal history of nicotine dependence; Z96.692 Finger-joint replacement of left hand; Z90.49 Acquired absence of other specified parts of digestive tract; Z90.710 Acquired absence of both cervix and uterus; W00.2XXA Other fall from one level to another due to ice and snow, initial encounter
CPT/HCPCS: 99283; 96372; 29515; 73610; J1170

== ENCOUNTER → 2020-05-01 | Outpatient (CLI) | payer MEDICARE, OTHER ==
--- NOTE | 2020-05-01 08:16 | CT ---
EXAMINATION TYPE: CT ankle LT wo con DATE OF EXAM: 05/01/2020 COMPARISON: Left ankle x-ray April 28, 2020 HISTORY: fall/ pain lt ankle, sprain tibiofibular ligament, fracture of the talus. CT DLP: 275.5 mGycm Automated exposure control for dose reduction was used. FINDINGS: There is redemonstration of few tiny bony fragments or ossifications from the lateral malleolus, axia l images show subtle disruption along the anterior margin consistent with tiny avulsion type fracture s seen best on axial image 73. Medial malleolus is intact. Posterior malleolus is intact. Ankle morti se symmetry is preserved. [id number] soft tissue edema over lateral malleolus. The talus is grossly intact. Lateral talar margin of preserved making lateral talar bony fragments or fracture as source of bony fragments unlikely. Incidental tiny superior and small to moderate size inferior calcaneal spurs. Mild to moderate narrow ing of the Posterior subtalar joint with prominent spur from the posterior aspect of the talus and some joint sp daniella sclerosis. Mild to moderate narrowing of the calcaneocuboid joint sagittal image 21 greatest inferiorly. No hind foot fracture or dislocation. Mild/moderate subcutaneous edema along the plantar aspect hindfoot. Moderate narrowing base of second metatarsal. IMPRESSION: Tiny acute avulsion type bony fractures from the anterior aspect of the lateral malleolus with adjacent mild to moderate soft tissue edema. No CT evidence for lateral talar process or snowbo arder fracture.
== END | disposition home or self-care (01) ==
LOC: RADCTMAIN 07:20
PROVIDERS: ATTEND Orthopaedic Surgery
DX: M25.572 Pain in left ankle and joints of left foot (principal); S93.432A Sprain of tibiofibular ligament of left ankle, initial encounter; S92.102A Unspecified fracture of left talus, initial encounter for closed fracture